=== PATIENT | male | born 1950 | race Caucasian/White ===

== ENCOUNTER 2018-06-20 07:46 | Emergency (ER) | payer MEDICARE ==
[2018-06-20] MEDS ORDERED: Famotidine IV* 10 MG/ML 2 ML (20 mg) IV ONE (08:29)
[2018-06-20] MEDS ORDERED: Ondansetron INJ* 2 MG/ML VIAL IV ONE (08:29)
--- NOTE | 2018-06-20 08:33 | ED ---
GI/ HPI - HPI Summary HPI Summary: The pt is a 68 y/o M presenting to the ED with a chief complaint of GI issues. About two weeks ago, the pt had diarrhea 2wks ago and noticed blood present last week. The past few days, his BMs have been watery and bloody. He also reports intermittent nausea, wretching w/o vomiting, lightheadedness, dizziness , slight LE edema, and dark urine. He denies CP, SOB, and abd pain. He quit smoking about 10yrs ago but smoked most of his life, and he does not see a PCP but the last time he did see a physician they thought he may have COPD. - History of Current Complaint Chief Complaint: EDGIBleed Time Seen by Provider: 06/20/18 08:07 Stated Complaint: "BLOOD IN STOOL FOR A WEEK" PER PT Hx Obtained From: Patient Onset/Duration: Started Weeks Ago, Still Present Timing: Constant, Lasting Weeks Severity: Moderate Current Severity: Moderate Pain Intensity: 0 Location of Pain: None Associated Signs and Symptoms: Positive: Dizziness, Nausea, Blood w/Stool, Diarrhea, Lightheadedness. Negative: Vomiting, Abdominal Pain, Chest Pain, UTI Symptoms Aggravating Factor(s): Nothing Alleviating Factor(s): Nothing - Allergy/Home Medications Allergies/Adverse Reactions: Allergies Allergy/AdvReac Type Severity Reaction Status Date / Time No Known Allergies Allergy Verified 06/20/18 08:16 PMH/Surg Hx/FS Hx/Imm Hx Previously Healthy: Yes - pt unsure about entire hx, hasn't seen PCP in 9yrs Cardiovascular History: Denies: Hx Hypertension Musculoskeletal History: Reports: Hx Arthritis - HANDS, HIPS Sensory History: Reports: Hx Contacts or Glasses - READING Denies: Hx Hearing Aid Opthamlomology History: Reports: Hx Contacts or Glasses - READING Psychiatric History: Reports: Hx Anxiety - WITH COMING INTO THE HOSPITAL, Hx Depression - A FEW YEARS AGO- NONE NOW - Surgical History Surgery Procedure, Year, and Place: GALLBLADDER REMOVED - 30 YEARS AGO-[facility]. HERNIS REPAIR- 10 YEARS- [facility] Hx Anesthesia Reactions: No Infectious Disease History: No Infectious Disease History: Denies: Traveled Outside the [place] in Last 30 Days - Family History Known Family History: Positive: Unknown - mother passed, potentially of CA, she did not inform pt, Other - father passed of equine encephalitis - Social History Alcohol Use: None Hx Substance Use: No Substance Use Type: Reports: None Hx Tobacco Use: Yes Smoking Status (MU): Former Smoker Review of Systems Negative: Chest Pain Negative: Shortness Of Breath Positive: Diarrhea, Nausea. Negative: Abdominal Pain, Vomiting Positive: other - dark urine. Negative: burning, dysuria Positive: Edema All Other Systems Reviewed And Are Negative: Yes Physical Exam - Summary Physical Exam Summary: Constitutional: Well-developed, Well-nourished, Alert. (-) Distressed Skin: Warm, Dry, no pallor, some marbling on R leg, more so than left, and some variation in skin coloring of legs. Legs are warm and well perfused. HENT: Normocephalic; Atraumatic Eyes: Conjunctiva normal Neck: Musculoskeletal ROM normal neck. (-) JVD, (-) Stridor, (-) Tracheal deviation Cardio: Rhythm regular, rate normal, Heart sounds normal; Intact distal pulses; The pedal pulses are 2+ and symmetric. Radial pulses are 2+ and symmetric. Pulmonary/Chest wall: Effort normal. (-) Respiratory distress, (-) Wheezes, (-) Rales Abd: Soft, localizing some pain in the LUQ, no tenderness elicited on exam, (-) Distension, (-) Guarding, (-) Rebound Musculoskeletal: Slightly edematous; pulling tight, R calf is 44cm and L calf is 42cm. Neuro: Alert, Oriented x3 Psych: Mood and affect Normal Rectal: Stool looks black on glove but contains blood. Triage Information Reviewed: Yes Vital Signs On Initial Exam: Initial Vitals Temp Pulse Resp BP Pulse Ox 97.0 F 100 16 125/84 94 06/20/18 07:52 06/20/18 07:52 06/20/18 07:52 06/20/18 07:52 06/20/18 07:52 Vital Signs Reviewed: Yes Diagnostics - Vital Signs Vital Signs Temp Pulse Resp BP Pulse Ox 06/20/18 07:52 97.0 F 100 16 125/84 94 - Laboratory Result Diagrams: 06/20/18 08:47 06/20/18 08:47 Lab Statement: Any lab studies that have been ordered have been reviewed, and results considered in the medical decision making process. - CT CT abd/pelv CT Interpretation Completed By: Radiologist Summary of CT Findings: Diffuse wall thickening of the transverse colon, descending colon and a portion of the sigmoid colon suspicious for colitis. No other masses or fluid collections are noted. Mildly ectatic abdominal aorta measuring up to 3.6 cm in greatest width. ED physician has reviewed this report. - EKG 0839 Cardiac Rate: NL - 89bpm EKG Rhythm: Sinus Rhythm ST Segment: Non-Specific Ectopy: None EKG Comparison: No Significant Change - from 04/03/12 Summary of EKG Findings: An EKG at 0839 shows NSR at 89bpm with old inferior Q waves, nonspecific T wave abnormalities, no STEMI and no acute changes from . GIGU Course/Dx - Course Course Of Treatment: Pt is a 68 y/o M presenting to the ED for GI issues. He reports diarrhea onset 2wks ago and blood in his diarrhea 1wk ago. His BMs have been watery and bloody lately. He reports intermittent nausea, wretching w/o vomiting, lightheadedness, dizziness, slight LE edema, and dark urine. He denies CP, SOB, and abd pain. His physical exam is relatively normal aside from slight LE edema and marbling of the LE skin. There is no pallor and he has normal conjunctiva. His rectal exam shows stool that looks black on the glove but contains blood, so there is some concern for GI bleed. An EKG at 0839 shows NSR at 89bpm with old inferior Q waves, nonspecific T wave abnormalities, no STEMI and no acute changes from 04/03/12. Stool occult is positive for blood present. His Hgb is slightly lowered at 12.6. Pts troponin is 0.02, lactic acid is 1.1, and ammonia is 54. The pts INR is 1.46. All other lab results are WNL. CT abd/pelv shows. Diffuse wall thickening of the transverse colon, descending colon and a portion of the sigmoid colon suspicious for colitis. No other masses or fluid collections are noted. Mildly ectatic abdominal aorta measuring up to 3.6 cm in greatest width. He will be discharged with a dx of colitis and GI bleed. The pt is agreeable with this plan. - Diagnoses Provider Diagnoses: Colitis, GI bleed Discharge - Sign-Out/Discharge Documenting (check all that apply): Patient Departure Patient Received Moderate/Deep Sedation with Procedure: No - Discharge Plan Condition: Stable Disposition: HOME Prescriptions: Ciprofloxacin TAB* [Cipro 500 MG TAB*] 500 mg PO BID #19 tab metroNIDAZOLE [Flagyl 500 MG TAB] 500 mg PO TID 10 Days #29 tab Patient Education Materials: Infectious Colitis (ED) Print Language: GHANAIAN Referrals: [facility] [Outside] Additional Instructions: as tolerated - Billing Disposition and Condition Condition: STABLE Disposition: Home - Attestation Statements Document Initiated by Scribe: Yes Documenting Scribe: Radha Eisenberg Provider For Whom Elvira is Documenting (Include Credential): Clement Kan MD. Scribe Attestation: Radha Jang, scribed for Clement Kan MD. on 06/20/18 at 1651. Scribe Documentation Reviewed: Yes Provider Attestation: The documentation as recorded by the scribe, Radha Eisenberg accurately reflects the service I personally performed and the decisions made by me, Clement Kan MD. Status of Scribe Document: Viewed
[2018-06-20 08:59] LABS: ABS Basophils 0 10^3/ul (0-0.2); ABS Eosinophils 0.2 10^3/ul (0-0.6); ABS Monocytes 1.5 10^3/ul (0-0.8); ABS Neutrophils 5.5 10^3/ul (1.5-7.7); ABS Nucleated RBC 0 10^3/ul; Hematocrit 38 % (36-46); Hemoglobin 12.6 g/dL (14.0-18.0); Lymphocyte % 12.6 %; Mean Corpuscular HGB Conc 33 g/dL (31-36); Mean Corpuscular Hemoglobin 30 pg (27-31); Mean Corpuscular Volume 91 fL (80-94); Mean Platelet Volume 8.1 fL (7.4-10.4); Nucleated Red Blood Cells % 0; Platelet Count 285 10^3/uL (150-450); Red Blood Count 4.17 10^6 /uL (4.18-5.48); Red Cell Distribution Width 13 % (10.5-15); White Blood Count 8.3 10^3/uL (3.5-10.8)
[2018-06-20] MEDS ORDERED: Lactated Ringers 1000 ML Bag* 1,000 ML IV SCH (09:00)
[2018-06-20 09:08] LABS: Activated Partial Thrombo Time 28.3 seconds (26.0-36.3); INR 1.46 (0.82-1.09)
[2018-06-20 09:15] LABS: Albumin 2.9 g/dL (3.2-5.2); Albumin/Globulin Ratio 0.9 (1-3); BUN/Creatinine Ratio 14.3 (8-20); Calcium 8.5 mg/dL (8.6-10.3); EGFR African American 134.9 (>60); EGFR Non-African American 111.5 (>60); Globulin 3.3 g/dL (2-4); Magnesium 1.8 mg/dL (1.9-2.7); Potassium 3.4 mmol/L (3.5-5.0); Total Bilirubin 0.4 mg/dL (0.2-1.0); Total Protein 6.2 g/dL (6.4-8.9)
[2018-06-20 09:16] LABS: Troponin I 0.02 ng/mL (<0.04)
[2018-06-20 09:18] LABS: BNP 50 pg/mL (<=100)
[2018-06-20] MEDS ORDERED: Iohexol 300* (CONTRAST) 10 ML SDV IV ONE (09:46)
[2018-06-20] MEDS ORDERED: Ciprofloxacin TAB* 500 MG PO ONE (11:28)
[2018-06-20] MEDS ORDERED: metroNIDAZOLE TAB* 250 MG PO ONE (11:28)
[2018-06-20 12:05] VITALS: BP 122/64
== END 2018-06-20 12:04 | disposition home or self-care (01) ==
LOC: ED 07:46
DX: K52.9 Noninfective gastroenteritis and colitis, unspecified (principal); K92.2 Gastrointestinal hemorrhage, unspecified; Z87.891 Personal history of nicotine dependence; F41.9 Anxiety disorder, unspecified
CPT/HCPCS: 36415; 74177; 80053; 82140; 82272; 83605; 83690; 83735; 83880; 84484; 85025; 85610; 85730; 86850; 86900; 86901; 93005; 96365; 96366; 99284; A9270-GY; J2405; Q9967